=== PATIENT | female | born 1930 | race Caucasian/White ===

== ENCOUNTER 2017-11-01 21:47 | Inpatient (IN) | payer MEDICARE, BC ==
[~2017-11-01] VITALS: Ht 160 cm; Wt 64.8 kg
[2017-11-01 21:54] VITALS: BP 203/95; PULSE 104; RESP 18; TEMP 98.7; O2SAT 96
[2017-11-01 22:15] VITALS: BP 208/88; PULSE 89; RESP 18; O2SAT 98
--- NOTE | 2017-11-01 22:18 | PD ---
HPI Chief Complaint: Head Injury Time Seen by Provider: 22:11 Travel History International Travel<30 days: No Contact w/Intl Traveler<30days: No Traveled to known affect area: No History of Present Illness HPI The patient is an 87-year-old female that apparently tripped and fell and hit her left head at a 2100 tonight. She has been confused and has a left-sided headache and facial pain. She does not remember the incident. The fall was witnessed by her son and [id number]. She denies any injury other than to her face and head. She denies any neck pain. She takes aspirin but is not on any other anticoagulant. [facility] Social History Tobacco Use: No Allergies-Medications (Allergen,Severity, Reaction): Coded Allergies: Sulfa (Sulfonamide Antibiotics) (Verified Allergy, Severe, Anaphylaxis, 10/07) Reported Meds & Prescriptions Reported Meds & Active Scripts Active Reported Atorvastatin (Atorvastatin Calcium) 10 Mg Tab 10 Mg PO HS Zantac (Ranitidine HCl) 150 Mg Tab 150 Mg PO DAILY Aspirin 81 Mg Chew 81 Mg CHEW DAILY Ditropan (Oxybutynin Chloride) 5 Mg Tab 5 Mg PO Q12HR Triamterene-Hydrochlorothiazide 37.5-25 Mg Cap 1 Cap PO DAILY Carvedilol 12.5 Mg Tab 12.5 Mg PO BID Review of Systems Except as stated in HPI: all other systems reviewed are Neg Physical Exam Narrative GENERAL: The patient is alert but confused. She answers questions slowly but usually appropriately. Her vital signs show blood pressure 166/71 but otherwise normal. SKIN: Focused skin assessment warm/dry. HEAD: There are multiple tender areas of the scalp but no associated skull deformity. Neither raccoon eyes or nance sign is present. Normocephalic. EYES: Pupils equal and round. No scleral icterus. No injection or drainage. ENT: No nasal bleeding or discharge. Mucous membranes pink and moist. There is no hemotympanum present. NECK: Trachea midline. No JVD. No carotid bruits are heard. There is diffuse tenderness over the trapezius at the neck but no posterior spinous process deformity although there is some posterior spinous process tenderness. CARDIOVASCULAR: Regular rate and rhythm. No murmur appreciated. RESPIRATORY: No accessory muscle use. Clear to auscultation. Breath sounds equal bilaterally. GASTROINTESTINAL: Abdomen soft, non-tender, nondistended. Hepatic and splenic margins not palpable. MUSCULOSKELETAL: No obvious deformities. No clubbing. No cyanosis. No edema. NEUROLOGICAL: Awake and alert. No obvious cranial nerve deficits. Motor grossly within normal limits. Normal speech. PSYCHIATRIC: Appropriate mood and affect; insight and judgment normal. Data Data Last Documented VS Vital Signs Date Time Temp Pulse Resp B/P (MAP) Pulse Ox O2 Delivery O2 Flow Rate FiO2 11/01/17 23:30 85 18 192/87 (122) 98 Room Air 11/01/17 21:[address] Brain W/O Iv Contrast(Rout) (11/01/17 22:11) Ct Facial Bones W/O Iv Cont (11/01/17 22:11) Complete Blood Count With Diff (11/01/17 22:13) Comprehensive Metabolic Panel (11/01/17 22:13) Troponin I (11/01/17 22:13) Prothrombin Time / Inr (Pt) (11/01/17 22:13) Act Partial Throm Time (Ptt) (11/01/17 22:13) Urinalysis - C+S If Indicated (11/01/17 22:13) Urine Culture (11/01/17 22:17) Morphine Inj (Morphine Inj) (11/02/17 00:00) Admit Order (Ed Use Only) (11/02/17 00:20) Labs Laboratory Tests Test 11/01/17 22:17 White Blood Count 9.2 TH/MM3 Red Blood Count 5.17 MIL/MM3 Hemoglobin 14.6 GM/DL Hematocrit 44.9 % Mean Corpuscular Volume 86.9 FL Mean Corpuscular Hemoglobin 28.2 PG Mean Corpuscular Hemoglobin Concent 32.5 % Red Cell Distribution Width 13.6 % Platelet Count 275 TH/MM3 Mean Platelet Volume 8.1 FL Neutrophils (%) (Auto) 66.6 % Lymphocytes (%) (Auto) 21.7 % Monocytes (%) (Auto) 9.2 % Eosinophils (%) (Auto) 1.7 % Basophils (%) (Auto) 0.8 % Neutrophils # (Auto) 6.1 TH/MM3 Lymphocytes # (Auto) 2.0 TH/MM3 Monocytes # (Auto) 0.8 TH/MM3 Eosinophils # (Auto) 0.2 TH/MM3 Basophils # (Auto) 0.1 TH/MM3 CBC Comment DIFF FINAL Differential Comment Prothrombin Time 10.2 SEC Prothromb Time International Ratio 1.0 RATIO Activated Partial Thromboplast Time 24.5 SEC Urine Collection Type VOIDED Urine Color YELLOW Urine Turbidity HAZY Urine pH 5.5 Urine Specific [place] 1.023 Urine Protein TRACE mg/dL Urine Glucose (UA) NEG mg/dL Urine Ketones NEG mg/dL Urine Occult Blood SMALL Urine Nitrite POS Urine Bilirubin NEG Urine Leukocyte Esterase SMALL Urine WBC 100-200 /hpf Urine WBC Clumps RARE Urine Squamous Epithelial Cells 3-5 /hpf Urine Bacteria FEW /hpf Microscopic Urinalysis Comment CULTURE INDICATED Blood Urea Nitrogen 31 MG/DL Creatinine 0.95 MG/DL Random Glucose 109 MG/DL Total Protein 7.5 GM/DL Albumin 3.8 GM/DL Calcium Level 8.6 MG/DL Alkaline Phosphatase 145 U/L Aspartate Amino Transf (AST/SGOT) 24 U/L Alanine Aminotransferase (ALT/SGPT) 21 U/L Total Bilirubin 0.4 MG/DL Sodium Level 140 MEQ/L Potassium Level 3.6 MEQ/L Chloride Level 106 MEQ/L Carbon Dioxide Level 27.1 MEQ/L Anion Gap 7 MEQ/L Estimat Glomerular Filtration Rate 56 ML/MIN Troponin I LESS THAN 0.02 NG/ML MDM Medical Decision Making Medical Screen Exam Complete: Yes Emergency Medical Condition: Yes Medical Record Reviewed: Yes Interpretation(s) The CT of the brain shows left-sided facial bone fractures but no acute intracranial findings. The CT of the facial bones shows left orbital floor fracture and left orbital lateral wall fracture. There are anterior and posterior lateral maxillary sinus wall fractures with moderate sized air fluid level and hemorrhagic products of left maxillary sinus. There is a 1.6 cm osseous cyst in the left maxillary bone about the root of the left maxillary molar. This finding deforms the inferior wall left maxillary sinus. The CBC is normal. The coagulation profile is normal. The complete metabolic profile shows an alkaline phosphatase of 145, GFR 56 and BUN of 31 but otherwise is normal. The troponin I is normal. The urine shows hazy turbidity, small occult blood, positive nitrite, small leukocyte Estrace with 100-200 white cells and rare white cell clumping's and few bacteria and culture is indicated. Differential Diagnosis Facial fracture, intracranial bleed, skull fracture, urinary tract infection, electrolyte disorder, hypo/hyperglycemia Narrative Course The patient has multiple facial fractures. She has confusion. She also has a urinary tract infection. She will be given Rocephin for both her urinary tract infection and her maxillary sinus fracture. Physician Communication Physician Communication I discussed the patient with Malina Ji, Hodan Juares Diagnosis Primary Impression: Concussion Additional Impressions: Orbital floor fracture Fracture of maxillary sinus UTI (urinary tract infection) Adalid John MD Nov 01, 2017 22:18
[2017-11-01 22:29] LABS: BILIRUBIN, URINE NEG (NEG); BLOOD, URINE SMALL (NEG); GLUCOSE,URINE NEG (NEG); KETONE, URINE NEG (NEG); NITRITE,URINE POS (NEG); PH, URINE 5.5 (5.0-8.5); URINE LEUKOCYTE ESTERASE SMALL (NEG)
[2017-11-01 22:30] LABS: AUTOMATED NEUTROPHIL # 6.1 TH/MM3 (1.8-7.7); BASOPHIL # 0.1 TH/MM3 (0-0.2); BASOPHIL % 0.8 % (0.0-2.0); EOSINOPHIL # 0.2 TH/MM3 (0-0.4); EOSINOPHIL % 1.7 % (0.0-4.0); HEMATOCRIT 44.9 % (35.0-46.0); HEMOGLOBIN 14.6 GM/DL (11.6-15.3); LYMPH % 21.7 % (9.0-44.0); MEAN CELL VOLUME 86.9 FL (80.0-100.0); MEAN CORPUSCULAR HEMOGLOBIN 28.2 PG (27.0-34.0); MEAN CORPUSCULAR HGB CONC 32.5 % (32.0-36.0); MEAN PLATELET VOLUME 8.1 FL (7.0-11.0); MONO % 9.2 % (0.0-8.0); MONOCYTE # 0.8 TH/MM3 (0-0.9); NEUT % 66.6 % (16.0-70.0); PLATELET COUNT 275 TH/MM3 (150-450); RED BLOOD COUNT 5.17 MIL/MM3 (4.00-5.30); RED CELL DISTRIBUTION WIDTH 13.6 % (11.6-17.2); WHITE BLOOD COUNT 9.2 TH/MM3 (4.0-11.0)
[2017-11-01 22:36] LABS: URINE COLOR YELLOW (YELLW/STRAW); WBC, URINE 100-200 /hpf (0-5)
[2017-11-01 22:37] LABS: BACTERIA, URINE FEW /hpf; CHLORIDE 106 MEQ/L (98-107); SODIUM (NA) 140 MEQ/L (136-145); WHITE BLOOD CELL CLUMPS RARE
--- NOTE | 2017-11-01 22:39 | RADRPT ---
EXAM DATE/TIME: 11/01/2017 22:25 [facility] COMPARISON: No previous studies available for comparison. INDICATIONS : Status post fall today. Facial and head contusions. Confusion RADIATION DOSE: 55.66 CTDIvol (mGy) MEDICAL HISTORY : None SURGICAL HISTORY : jaw ENCOUNTER: Initial ACUITY: 1 day PAIN SCALE: 8/10 LOCATION: cranial TECHNIQUE: Multiple contiguous axial images were obtained of the head. Using automated exposure control and adj ustment of the mA and/or kV according to patient size, radiation dose was kept as low as reasonably a chievable to obtain optimal diagnostic quality images. DICOM format image data is available electro nically for review and comparison. FINDINGS: CEREBRUM: The ventricles are normal for age. No evidence of midline shift, mass lesion, hemorrhage or acute in farction. No extra-axial fluid collections are seen. POSTERIOR FOSSA: The cerebellum and brainstem are intact. The 4th ventricle is midline. The cerebellopontine angle i s unremarkable. EXTRACRANIAL: Left-sided facial bone fractures and hemorrhagic products in the left maxillary sinus. SKULL: The calvaria is intact. No evidence of skull fracture. CONCLUSION: Left-sided facial bone fractures. No acute intracranial findings. Jaycob Mckeon MD on November 01, 2017 at 22:35 Board Certified Radiologist. This report was verified electronically.
[2017-11-01 22:40] LABS: ALBUMIN 3.8 GM/DL (3.4-5.0); BICARBONATE 27.1 MEQ/L (21.0-32.0); CALCIUM 8.6 MG/DL (8.5-10.1)
[2017-11-01 22:41] LABS: BLOOD UREA NITROGEN 31 MG/DL (7-18); GLUCOSE,RANDOM 109 MG/DL (74-106)
[2017-11-01 22:43] LABS: ALT (GPT) 21 U/L (10-53); PROTHROMBIN TIME - PATIENT 10.2 SEC (9.8-11.6)
[2017-11-01 22:44] LABS: AST (GOT) 24 U/L (15-37); CREATININE 0.95 MG/DL (0.50-1.00); GLOMERULAR FILTRATION RATE 56 ML/MIN (>89)
[2017-11-01 22:45] LABS: TOTAL BILIRUBIN ADULT 0.4 MG/DL (0.2-1.0); TOTAL PROTEIN 7.5 GM/DL (6.4-8.2)
[2017-11-01 22:46] LABS: ALKALINE PHOSPHATASE 145 U/L (45-117)
[2017-11-01 22:48] LABS: TROPONIN I LESS THAN 0.02 NG/ML (0.02-0.05)
--- NOTE | 2017-11-01 22:49 | RADRPT ---
EXAM DATE/TIME: 11/01/2017 22:25 [facility] COMPARISON: No previous studies available for comparison. INDICATIONS : Status post fall. facial and head contusions. Confusion RADIATION DOSE: 34.89 CTDIvol (mGy) MEDICAL HISTORY : None SURGICAL HISTORY : Jaw ENCOUNTER: Initial ACUITY: 1 day PAIN SCORE: 8/10 LOCATION: facial TECHNIQUE: Volumetric scanning of the facial bones was performed. Using automated exposure control and adjustme nt of the mA and/or kV according to patient size, radiation dose was kept as low as reasonably achiev able to obtain optimal diagnostic quality images. DICOM format image data is available electronicall y for review and comparison. FINDINGS: ORBITS: Fracture of the left orbital floor, mildly comminuted. Fracture is displaced superiorly 3 mm. Fractur e extends to the orbital rim. Fracture is just lateral to the infraorbital foramen. The nondisplaced left lateral orbital wall fracture. Right orbit is intact. Globes are round and symmetric. Extraocula r muscles are within normal limits. NASAL BONE: The nasal bone and maxillary spine are intact ZYGOMATIC ARCHES: Nondisplaced fractures of the central and posterior left zygomatic arch. SINUSES: Mildly comminuted fracture of the anterior wall of the left maxillary sinus. Nondisplaced fracture of the postero-lateral wall of the left maxillary sinus. Moderate sized air-fluid level in the left max illary sinus. Sinuses are otherwise clear. Expansile periapical cyst adjacent to left maxillary molar root measuring 1.6 cm in diameter and extending into the floor of the left maxillary sinus. This fin ding is chronic. NASAL CAVITY: The nasal septum is intact and midline. The lacrimal ducts are intact. CONCLUSION: 1. Left orbital floor flexure and left lateral orbital wall fracture. 2. Anterior and posterior lateral left maxillary sinus wall fractures. Moderate-sized air-fluid level /hemorrhagic products in the left maxillary sinus. 3. 1.6 cm osseous cyst in the left maxillary bone about the root of a left-sided maxillary molar. Thi s finding deforms the inferior wall of the left maxillary sinus. Jaycob Mckeon MD on November 01, 2017 at 22:41 Board Certified Radiologist. This report was verified electronically.
[2017-11-01 23:30] VITALS: BP 192/87; PULSE 85; RESP 18; O2SAT 98
[2017-11-01] MEDS ORDERED: CARV12.52 PO (23:44)
[2017-11-01] MEDS ORDERED: ATOR10TA15 PO (23:44)
[2017-11-01] MEDS ORDERED: ZANT150T2 PO (23:44)
[2017-11-01] MEDS ORDERED: OXYB5TAB8 PO (23:44)
[2017-11-01] MEDS ORDERED: ASPI-516 CHEW (23:44)
[2017-11-01] MEDS ORDERED: TRIA37.53 PO (23:44)
[2017-11-02] VITALS (18 sets, daily range): BP systolic 98–198; BP diastolic 43–97; PULSE 70–93; RESP 12–21; TEMP 97.5–98.5; O2SAT 93–99
[2017-11-02] MEDS ORDERED: MORPHINE SULFATE 4 MG/ML INJ IV PUSH ONE
[2017-11-02] MEDS ORDERED: ACETAMINOPHEN/HYDROcodone 325 MG/5 MG TAB PO PRN (00:30)
[2017-11-02] MEDS ORDERED: LACTULOSE SYRUP 20 GM/30 ML CUP PO PRN (00:30)
[2017-11-02] MEDS ORDERED: ONDANSETRON HCL 4 MG/2 ML VIAL IVP PRN (00:30)
[2017-11-02] MEDS ORDERED: MAGNESIUM HYDROXIDE SUSP 30 ML CUP PO PRN (00:30)
[2017-11-02] MEDS ORDERED: SODIUM CHLORIDE 0.9% FLUSH 10 ML FLUSH IV FLUSH PRN ×2 (00:30→03:45)
[2017-11-02] MEDS ORDERED: SENNOSIDES 8.6 MG TAB PO PRN (00:30)
[2017-11-02] MEDS ORDERED: MORPHINE SULFATE 2 MG/ML INJ IV PUSH PRN (00:30)
[2017-11-02] MEDS ORDERED: BISACODYL 10 MG SUPP RECTAL PRN (00:30)
[2017-11-02] MEDS: cefTRIAXone INJ 1,000 MG in SODIUM CHLORIDE 0.9% INJ 100 ML IV SCH (01:09)
[2017-11-02] MEDS: SODIUM CHLOR 0.9% 1000 ML INJ 1,000 ML IV SCH ×2 (01:12→02:25)
[2017-11-02] MEDS ORDERED: hydrALAZINE HCL 20 MG/ML VIAL IV PUSH PRN (03:45)
[2017-11-02] MEDS ORDERED: hydrALAZINE HCL 20 MG/ML VIAL IV ONE (05:15)
[2017-11-02 07:07] LABS: AUTOMATED NEUTROPHIL # 7.8 TH/MM3 (1.8-7.7); BASOPHIL % 0.2 % (0.0-2.0); EOSINOPHIL # 0.1 TH/MM3 (0-0.4); EOSINOPHIL % 0.6 % (0.0-4.0); HEMATOCRIT 40.8 % (35.0-46.0); LYMPH % 14.9 % (9.0-44.0); LYMPHOCYTE # 1.5 TH/MM3 (1.0-4.8); MEAN CORPUSCULAR HGB CONC 31.8 % (32.0-36.0); MEAN PLATELET VOLUME 8.4 FL (7.0-11.0); MONO % 8.8 % (0.0-8.0); MONOCYTE # 0.9 TH/MM3 (0-0.9); NEUT % 75.5 % (16.0-70.0); PLATELET COUNT 234 TH/MM3 (150-450); RED BLOOD COUNT 4.64 MIL/MM3 (4.00-5.30); RED CELL DISTRIBUTION WIDTH 13.9 % (11.6-17.2); WHITE BLOOD COUNT 10.3 TH/MM3 (4.0-11.0)
[2017-11-02 07:10] LABS: CHLORIDE 106 MEQ/L (98-107); SODIUM (NA) 142 MEQ/L (136-145)
[2017-11-02 07:14] LABS: ALBUMIN 3.3 GM/DL (3.4-5.0); BICARBONATE 28.5 MEQ/L (21.0-32.0); CALCIUM 8.3 MG/DL (8.5-10.1); GLUCOSE,RANDOM 119 MG/DL (74-106)
[2017-11-02 07:15] LABS: BLOOD UREA NITROGEN 22 MG/DL (7-18)
[2017-11-02 07:18] LABS: ALT (GPT) 16 U/L (10-53); AST (GOT) 23 U/L (15-37); CREATININE 0.77 MG/DL (0.50-1.00); GLOMERULAR FILTRATION RATE 71 ML/MIN (>89)
[2017-11-02 07:19] LABS: TOTAL BILIRUBIN ADULT 0.6 MG/DL (0.2-1.0); TOTAL PROTEIN 6.5 GM/DL (6.4-8.2)
[2017-11-02 07:21] LABS: ALKALINE PHOSPHATASE 116 U/L (45-117)
[2017-11-02] MEDS: TRIAMTERENE/HCTZ 37.5 MG/25 MG CAP PO SCH (08:17)
[2017-11-02] MEDS: FAMOTIDINE 20 MG TAB PO SCH (08:17)
[2017-11-02] MEDS: CARVEDILOL 12.5 MG TAB PO SCH ×2 (08:17→20:48)
[2017-11-02] MEDS: DOCUSATE SODIUM 50 MG/SENNA 8.6 MG TAB PO SCH ×2 (08:18→20:48)
[2017-11-02] MEDS: SODIUM CHLORIDE 0.9% FLUSH 10 ML FLUSH IV FLUSH SCH ×4 (08:18→20:50)
[2017-11-02] MEDS: ACETAMINOPHEN 325 MG TAB PO PRN ×2 (08:18→17:42)
[2017-11-02] MEDS: OXYBUTYNIN CHLORIDE 5 MG TAB PO SCH ×2 (08:54→20:47)
--- NOTE | 2017-11-02 09:56 | HHI.HP ---
[facility] Primary [facility] Physician Unknown Admission Diagnosis Concussion, Facial fractures, UTI Diagnoses: (1) Fracture of maxillary sinus Diagnosis: Principal (2) Orbital floor fracture Diagnosis: Principal (3) UTI (urinary tract infection) Diagnosis: Principal Chief Complaint: Status post fall Travel History International Travel<30 Days: No Contact w/Intl Traveler <30 Da: No Traveled to Known Affected Are: No History of Present Illness Written by mAy Esposito, acting as scribe for [[facility]] on 11/02/17 at 0956. This is an 87-year-old female patient with a known medical history of hyperlipidemia, hypertension and overactive bladder who presented to the ED status post fall. Per , patient had apparently tripped and fell in the parking lot last evening around 2100 hitting the left side of his her face, therefore was brought in to the ED. A CT head was performed showing no acute intracranial abnormality. Patient does not recall the fall or incidents after the fall up until this morning. Patient and her family did go to a wedding the day of the fall and patient's memory of the last day is foggy. Denies any recent illness including fever, chills, shortness of breath, cough, chest pain, nausea, vomiting or diarrhea. Denies any headaches or blurry vision. Patient does state that she had a urinary tract infection one year ago with similar symptoms of confusion and lethargy. At that time she was treated with antibiotics and symptoms improved. Patient is completely independent at baseline, lives at home alone with and able to perform all ADLs independently. Review of Systems Constitutional: DENIES: Fever, Chills Eyes: COMPLAINS OF: Eye pain (left), DENIES: Blurred vision, Diplopia, Eye inflammation, Vision loss, Photosensitivity, Double Vision Respiratory: DENIES: Cough, Shortness of breath Cardiovascular: DENIES: Chest pain, Palpitations Gastrointestinal: DENIES: Abdominal pain, Black stools, Bloody stools, Constipation, Diarrhea, Nausea, Vomiting Musculoskeletal: DENIES: Joint pain Neurologic: COMPLAINS OF: Poor Balance Psychiatric: COMPLAINS OF: Confusion, DENIES: Anxiety, Mood changes, Agitation Except as stated in HPI: all other systems reviewed are Neg Past Family Social History 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, broken jaw repair Reported Medications Active Reported Atorvastatin (Atorvastatin Calcium) 10 Mg Tab 10 Mg PO HS Zantac (Ranitidine HCl) 150 Mg Tab 150 Mg PO DAILY Aspirin 81 Mg Chew 81 Mg CHEW DAILY Ditropan (Oxybutynin Chloride) 5 Mg Tab 5 Mg PO Q12HR Triamterene-Hydrochlorothiazide 37.5-25 Mg Cap 1 Cap PO DAILY Carvedilol 12.5 Mg Tab 12.5 Mg PO BID Allergies: Coded Allergies: Sulfa (Sulfonamide Antibiotics) (Verified Allergy, Severe, Anaphylaxis, 10/07) Active Ordered Medications Current Medications Medications (Trade) Dose Ordered Sig/Haja Route Start Time Stop Time Status Last Admin Sodium Chloride 1,000 ml @ 100 mls/hr Q10H IV 11/02/17 00:25 11/02/17 02:25 (NS Flush) 2 ml UNSCH PRN IV FLUSH 11/02/17 00:30 (NS Flush) 2 ml BID IV FLUSH 11/02/17 09:00 11/02/17 08:18 (Zofran Inj) 4 mg Q6H PRN IVP 11/02/17 00:30 (Tylenol) 650 mg Q6H PRN PO 11/02/17 00:30 11/02/17 08:18 (Vandiver 5-325 Mg) 1 tab Q4H PRN PO 11/02/17 00:30 (Morphine Inj) 2 mg Q3H PRN IV PUSH 11/02/17 00:30 (Dee Dee-Colace) 1 tab BID PO 11/02/17 09:00 11/02/17 08:18 (Milk Of Magnesia Liq) 30 ml Q12H PRN PO 11/02/17 00:30 (Senokot) 17.2 mg Q12H PRN PO 11/02/17 00:30 (Dulcolax Supp) 10 mg DAILY PRN RECTAL 11/02/17 00:30 (Lactulose Liq) 30 ml DAILY PRN PO 11/02/17 00:30 Ceftriaxone Sodium 1000 mg/ Sodium Chloride 100 ml @ 200 mls/hr Q24H IV 11/02/17 01:00 11/02/17 01:09 (Lipitor) 10 mg HS PO 11/02/17 21:00 (Coreg) 12.5 mg BID PO 11/02/17 09:00 11/02/17 08:17 (Ditropan) 5 mg Q12HR PO 11/02/17 09:00 11/02/17 08:54 (Dyazide 37.5-25 Mg) 1 cap DAILY PO 11/02/17 09:00 11/02/17 08:17 (Pepcid) 20 mg DAILY PO 11/02/17 09:00 11/02/17 08:17 (NS Flush) 2 ml UNSCH PRN IV FLUSH 11/02/17 03:45 (NS Flush) 2 ml BID IV FLUSH 11/02/17 09:00 (Apresoline Inj) 10 mg Q6H PRN IV PUSH 11/02/17 03:45 Family History Paternal medical history significant for CAD with [place] history Maternal medical history significant for dementia Social History She denies any tobacco abuse. Denies any alcohol use. Denies any illicit drug use. Physical Exam Vital Signs Vital Signs Date Time Temp Pulse Resp B/P (MAP) Pulse Ox O2 Delivery O2 Flow Rate FiO2 11/02/17 08:00 98.2 88 20 119/66 (83) 96 11/02/17 06:25 92 20 156/62 (93) 94 11/02/17 04:30 80 20 195/75 (115) 96 11/02/17 04:18 82 18 166/71 (102) 95 11/02/17 03:30 82 18 198/97 (130) 95 11/02/17 02:27 97.5 84 20 193/80 (117) 98 11/02/17 02:10 98.2 75 16 177/84 (115) 98 11/02/17 01:05 85 18 175/80 (111) 99 Room Air 11/01/17 23:30 85 18 192/87 (122) 98 Room Air 11/01/17 22:15 Room Air 11/01/17 22:15 89 18 208/88 (128) 98 Room Air 11/01/17 21:54 98.7 104 18 203/95 (131) 96 Physical Exam GENERAL: This is a well-nourished, well-developed elderly patient, in no apparent distress. Alert, awake and oriented. SKIN: No rashes, ecchymoses or lesions. Warm and dry. HEAD: Normocephalic. Left eye ecchymosis and mild swelling, status post fall. No hemorrhage noted. Denies any blurry vision. EYES: Pupils equal round and reactive. Extraocular motions intact. No scleral icterus. No drainage. ENT: Nose without bleeding, purulent drainage or septal hematoma. Throat without erythema. Uvula midline. Airway patent. NECK: Trachea midline. No JVD. Supple. CARDIOVASCULAR: Regular rate and rhythm without murmurs, gallops, or rubs. RESPIRATORY: Clear to auscultation. Breath sounds equal bilaterally. No wheezes , rales, or rhonchi. GASTROINTESTINAL: Abdomen soft, non-tender, nondistended. No guarding. MUSCULOSKELETAL: Extremities without clubbing, cyanosis, or edema. No joint tenderness, effusion, or edema noted. NEUROLOGICAL: Awake and alert. Cranial nerves II through XII intact. Motor and sensory grossly within normal limits. Five out of 5 muscle strength in all muscle groups. Normal speech. Laboratory Laboratory Tests Test 11/01/17 22:17 11/02/17 06:00 White Blood Count 9.2 10.3 Red Blood Count 5.17 4.64 Hemoglobin 14.6 13.0 Hematocrit 44.9 40.8 Mean Corpuscular Volume 86.9 88.0 Mean Corpuscular Hemoglobin 28.2 28.0 Mean Corpuscular Hemoglobin Concent 32.5 31.8 Red Cell Distribution Width 13.6 13.9 Platelet Count 275 234 Mean Platelet Volume 8.1 8.4 Neutrophils (%) (Auto) 66.6 75.5 Lymphocytes (%) (Auto) 21.7 14.9 Monocytes (%) (Auto) 9.2 8.8 Eosinophils (%) (Auto) 1.7 0.6 Basophils (%) (Auto) 0.8 0.2 Neutrophils # (Auto) 6.1 7.8 Lymphocytes # (Auto) 2.0 1.5 Monocytes # (Auto) 0.8 0.9 Eosinophils # (Auto) 0.2 0.1 Basophils # (Auto) 0.1 0.0 CBC Comment DIFF FINAL DIFF FINAL Differential Comment Prothrombin Time 10.2 Prothromb Time International Ratio 1.0 Activated Partial Thromboplast Time 24.5 Urine Collection Type VOIDED Urine Color YELLOW Urine Turbidity HAZY Urine pH 5.5 Urine Specific [place] 1.023 Urine Protein TRACE Urine Glucose (UA) NEG Urine Ketones NEG Urine Occult Blood SMALL Urine Nitrite POS Urine Bilirubin NEG Urine Leukocyte Esterase SMALL Urine WBC 100-200 Urine WBC Clumps RARE Urine Squamous Epithelial Cells 3-5 Urine Bacteria FEW Microscopic Urinalysis Comment CULTURE INDICATED Blood Urea Nitrogen 31 22 Creatinine 0.95 0.77 Random Glucose 109 119 Total Protein 7.5 6.5 Albumin 3.8 3.3 Calcium Level 8.6 8.3 Alkaline Phosphatase 145 116 Aspartate Amino Transf (AST/SGOT) 24 23 Alanine Aminotransferase (ALT/SGPT) 21 16 Total Bilirubin 0.4 0.6 Sodium Level 140 142 Potassium Level 3.6 3.7 Chloride Level 106 106 Carbon Dioxide Level 27.1 28.5 Anion Gap 7 8 Estimat Glomerular Filtration Rate 56 71 Troponin I LESS THAN 0.02 Date/Time Source Procedure Growth Status 11/01/17 22:17 Urine Random Urine Urine Culture Pending Received Result Diagram: 11/02/17 0600 11/02/17 0600 Imaging Last Impressions Wrist X-Ray 11/02/17 0000 Signed Impressions: Service Date/Time: Thursday, November 02, 2017 10:01 - CONCLUSION: No evidence of fracture. 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 Jaycob Mckeon MD Maxillofacial CT 11/01/172210 Signed Impressions: Service Date/Time: Wednesday, November 01, 2017 22:25 - CONCLUSION: 1. Left orbital floor flexure and left lateral orbital wall fracture. 2. Anterior and posterior lateral left maxillary sinus wall fractures. Moderate-sized air- fluid level/hemorrhagic products in the left maxillary sinus. 3. 1.6 cm osseous cyst in the left maxillary bone about the root of a left-sided maxillary molar. This finding deforms the inferior wall of the left maxillary sinus. Jaycob Mckeon MD Head CT 11/01/172210 Signed Impressions: Service Date/Time: Wednesday, November 01, 2017 22:25 - CONCLUSION: Left-sided facial bone fractures. No acute intracranial findings. Jaycob Mckeon MD Septic Shock Reassessment Septic shock perfusion: reassessment completed Caprini VTE Risk Assessment Caprini VTE Risk Assessment: Mod/High Risk (score >= 2) Caprini Risk Assessment Model Point Value = 1 Point Value = 2 Point Value = 3 Point Value = 5 Age 41-60 Minor surgery BMI > 25 kg/m2 Swollen legs Varicose veins or History of unexplained or recurrent spontaneous Oral contraceptives or hormone replacement Sepsis (< 1 month) Serious lung disease, including pneumonia (< 1 month) Abnormal pulmonary function Acute myocardial infarction Congestive heart failure (< 1 month) History of inflammatory bowel disease Medical patient at bed rest Age 61-74 Arthroscopic surgery Major open surgery (> 45 min) Laparoscopic surgery (> 45 min) Malignancy Confined to bed (> 72 hours) Immobilizing plaster cast Central venous access Age >= 75 History of VTE Family history of VTE Factor V Leiden Prothrombin [id number] Lupus anticoagulant Anticardiolipin antibodies Elevated serum homocysteine Heparin-induced thrombocytopenia Other congenital or acquired thrombophilia Stroke (< 1 month) Elective arthroplasty Hip, pelvis, or leg fracture Acute spinal cord injury (< 1 month) Prophylaxis Regimen Total Risk Factor Score Risk Level Prophylaxis Regimen 0-1 Low Early ambulation 2 Moderate Order ONE of the following: *Sequential Compression Device (SCD) *Heparin 5000 units SQ BID 3-4 Higher Order ONE of the following medications: *Heparin 5000 units SQ TID *Enoxaparin/Lovenox 40 mg SQ daily (WT < 150 kg, CrCl > 30 mL/min) *Enoxaparin/Lovenox 30 mg SQ daily (WT < 150 kg, CrCl > 10-29 mL/min) *Enoxaparin/Lovenox 30 mg SQ BID (WT < 150 kg, CrCl > 30 mL/min) AND/OR *Sequential Compression Device (SCD) 5 or more Highest Order ONE of the following medications: *Heparin 5000 units SQ TID (Preferred with Epidurals) *Enoxaparin/Lovenox 40 mg SQ daily (WT < 150 kg, CrCl > 30 mL/min) *Enoxaparin/Lovenox 30 mg SQ daily (WT < 150 kg, CrCl > 10-29 mL/min) *Enoxaparin/Lovenox 30 mg SQ BID (WT < 150 kg, CrCl > 30 mL/min) AND *Sequential Compression Device (SCD) Assessment and Plan Problem List: (1) Facial fracture due to fall ICD Code: S02.92XA - Unspecified fracture of facial bones, initial encounter for closed fracture; W19.XXXA - Unspecified fall, initial encounter Plan: Patient status post fall with facial fractures. Confusion has resolved. Denies any pain. Maxillofacial CT reviewed showing left orbital floor flexure and left lateral orbital wall fracture. Anterior and posterior lateral left maxillary sinus wall fractures. Moderate-sized air-fluid level/hemorrhagic products in the left maxillary sinus. 3. 1.6 cm osseous cyst in the left maxillary bone about the root of a left-sided maxillary molar. This finding deforms the inferior wall of the left maxillary sinus. Control pain, morphine IV and Vandiver PO available as needed per pain scale. Consult placed to oral/facial on-call surgeon with recommendations to monitor patient here at our facility. (2) Swelling of joint of left wrist ICD Code: M25.432 - Effusion, left wrist Plan: Status post fall. Left wrist x-ray performed showing no acute fracture. Supportive care. Ice as needed, elevation. (3) Abnormal urinalysis ICD Code: R82.90 - Unspecified abnormal findings in urine Plan: Patient started on ceftriaxone in the ED. Continue. Follow culture. (4) Hypertension ICD Code: I10 - Essential (primary) hypertension Plan: Continue home medications. Monitor BP trends. Stable at this time. DVT Prophylaxis: SCDs. Medical Decision Making Impression and Plan This note was transcribed by tana [[email or web address]]. I, Dr. Meenu Stiles personally performed the history, physical exam, and medical decision making; and confirmed the accuracy of the information in the transcribed note. Case discussed with WAVE SOLDERING MACHINE OPERATOR and family at bedside. They are agreeable to the plan Authenticated by Dr. Meenu Stiles on 11/02/17 at 13:31. Amy Esposito Nov 02, 2017 09:56 Meenu Stiles MD Nov 02, 2017 13:32
--- NOTE | 2017-11-02 10:21 | RADRPT ---
EXAM DATE/TIME: 11/02/2017 10:01 [place] COMPARISON: No previous studies available for comparison. INDICATIONS : Fell, has swelling and pain left wrist MEDICAL HISTORY : None. SURGICAL HISTORY : None. ENCOUNTER: Subsequent ACUITY: 2 days PAIN SCORE: 5/10 LOCATION: Left wrist FINDINGS: 3 views left wrist. Moderate-sized osteophytes and moderate narrowing of the thumb carpometacarpal pramod int. Alignment within normal limits. No evidence of acute fracture. Diffuse bone demineralization. CONCLUSION: No evidence of fracture. 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 Jaycob Mckeon MD on November 02, 2017 at 10:17 Board Certified Radiologist. This report was verified electronically.
[2017-11-02] MEDS: ATORVASTATIN 10 MG TAB PO SCH (20:48)
[2017-11-03] VITALS (8 sets, daily range): BP systolic 118–170; BP diastolic 45–81; PULSE 51–78; RESP 14–32; TEMP 96.7–98.5; O2SAT 94–98
[2017-11-03] MEDS: cefTRIAXone INJ 1,000 MG in SODIUM CHLORIDE 0.9% INJ 100 ML IV SCH (00:55)
--- NOTE | 2017-11-03 07:43 | HHI.PR ---
Subjective Remarks Patient seen and evaluated today in follow-up for fall with urinary tract infection for facial fracture. Doing well. Patient with external catheter. Some confusion overnight but easily reoriented. Discussed with DAIRY MANAGEMENT SPECIALIST Objective Vitals Vital Signs Date Time Temp Pulse Resp B/P (MAP) Pulse Ox O2 Delivery O2 Flow Rate FiO2 11/03/17 04:00 98.0 58 14 142/67 (92) 95 11/03/17 00:03 98.0 78 15 118/45 (69) 94 11/02/17 23:33 76 14 130/51 (77) 93 11/02/17 23:03 72 21 108/45 (66) 94 11/02/17 22:33 76 15 116/48 (70) 96 11/02/17 22:03 72 15 129/64 (85) 94 11/02/17 21:33 70 12 130/51 (77) 96 11/02/17 21:03 70 15 116/52 (73) 95 11/02/17 20:43 72 20 122/59 (80) 97 11/02/17 20:00 98.0 93 21 98/43 (61) 97 11/02/17 16:00 98.1 80 19 118/59 (78) 96 11/02/17 12:00 98.5 73 18 123/51 (75) 96 11/02/17 08:00 98.2 88 20 119/66 (83) 96 I/O 11/02/17 11/02/17 11/02/17 11/03/17 11/03/17 11/03/17 07:00 15:00 23:00 07:00 15:00 23:00 Intake Total 100 ml 1000 ml 100 ml Output Total 800 ml 700 ml 400 ml 600 ml Balance -700 ml 300 ml -400 ml -500 ml Intake IV Total 100 ml 1000 ml 100 ml Output Urine Total 800 ml 700 ml 400 ml 600 ml Result Diagram: 11/02/17 0600 11/02/17 0600 Imaging Last Impressions Wrist X-Ray 11/02/17 0000 Signed Impressions: Service Date/Time: Thursday, November 02, 2017 10:01 - CONCLUSION: No evidence of fracture. 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 Jaycob Mckeon MD Maxillofacial CT 11/01/171 Signed Impressions: Service Date/Time: Wednesday, November 01, 2017 22:25 - CONCLUSION: 1. Left orbital floor flexure and left lateral orbital wall fracture. 2. Anterior and posterior lateral left maxillary sinus wall fractures. Moderate-sized air- fluid level/hemorrhagic products in the left maxillary sinus. 3. 1.6 cm osseous cyst in the left maxillary bone about the root of a left-sided maxillary molar. This finding deforms the inferior wall of the left maxillary sinus. Jaycob Mckeon MD Head CT 11/01/172210 Signed Impressions: Service Date/Time: Wednesday, November 01, 2017 22:25 - CONCLUSION: Left-sided facial bone fractures. No acute intracranial findings. Jaycob Mckeon MD Objective Remarks GENERAL: This is a well-nourished, well-developed patient, left facial ecchymosis with some swelling CARDIOVASCULAR: Regular rate and rhythm without murmurs, gallops, or rubs. RESPIRATORY: Clear to auscultation. Breath sounds equal bilaterally. No wheezes , rales, or rhonchi. GASTROINTESTINAL: Abdomen soft, non-tender, nondistended. Normal active bowel sounds MUSCULOSKELETAL: Extremities without clubbing, cyanosis, or edema. NEURO: Alert & Oriented x4 to person, place, time, situation. Moves all ext x4 A/P Problem List: (1) Facial fracture due to fall ICD Code: S02.92XA - Unspecified fracture of facial bones, initial encounter for closed fracture; W19.XXXA - Unspecified fall, initial encounter Plan: Continue supportive care with pain control Oromaxillofacial surgery consult pending (2) Swelling of joint of left wrist ICD Code: M25.432 - Effusion, left wrist Plan: No evidence of fracture, continue supportive care (3) Abnormal urinalysis ICD Code: R82.90 - Unspecified abnormal findings in urine Plan: Continue empiric IV Rocephin and follow cultures (4) Hypertension ICD Code: I10 - Essential (primary) hypertension Plan: Controlled on home medications Meenu Stiles MD Nov 03, 2017 07:43
[2017-11-03] MEDS: FAMOTIDINE 20 MG TAB PO SCH (09:00)
[2017-11-03] MEDS: OXYBUTYNIN CHLORIDE 5 MG TAB PO SCH ×2 (09:00→22:09)
[2017-11-03] MEDS: SODIUM CHLORIDE 0.9% FLUSH 10 ML FLUSH IV FLUSH SCH ×4 (09:00→22:09)
[2017-11-03] MEDS: CARVEDILOL 12.5 MG TAB PO SCH ×2 (09:00→22:09)
[2017-11-03] MEDS: TRIAMTERENE/HCTZ 37.5 MG/25 MG CAP PO SCH (09:00)
[2017-11-03] MEDS: DOCUSATE SODIUM 50 MG/SENNA 8.6 MG TAB PO SCH ×2 (09:01→22:09)
[2017-11-03] MEDS: ACETAMINOPHEN 325 MG TAB PO PRN (09:18)
[2017-11-03] MEDS: ATORVASTATIN 10 MG TAB PO SCH (22:09)
[2017-11-04] VITALS: BP 142/67; PULSE 75; RESP 16; TEMP 97.2; O2SAT 96
[2017-11-04] MEDS: cefTRIAXone INJ 1,000 MG in SODIUM CHLORIDE 0.9% INJ 100 ML IV SCH (00:37)
[2017-11-04 07:50] VITALS: BP 143/65; PULSE 61; RESP 20; TEMP 98.5; O2SAT 95
[2017-11-04] MEDS: CARVEDILOL 12.5 MG TAB PO SCH ×2 (08:46→22:30)
[2017-11-04] MEDS: OXYBUTYNIN CHLORIDE 5 MG TAB PO SCH ×2 (08:46→22:30)
[2017-11-04] MEDS: FAMOTIDINE 20 MG TAB PO SCH (08:46)
[2017-11-04] MEDS: DOCUSATE SODIUM 50 MG/SENNA 8.6 MG TAB PO SCH ×3 (08:46→22:29)
[2017-11-04] MEDS: SODIUM CHLORIDE 0.9% FLUSH 10 ML FLUSH IV FLUSH SCH ×3 (08:46→22:30)
[2017-11-04] MEDS: TRIAMTERENE/HCTZ 37.5 MG/25 MG CAP PO SCH (08:46)
--- NOTE | 2017-11-04 09:41 | HHI.PR ---
Objective Vitals Vital Signs Date Time Temp Pulse Resp B/P (MAP) Pulse Ox O2 Delivery O2 Flow Rate FiO2 11/04/17 00:00 97.2 75 16 142/67 (92) 96 11/03/17 20:00 96.7 51 20 155/81 (105) 98 11/03/17 18:00 97.3 76 18 140/63 (88) 97 11/03/17 16:00 98.5 52 20 158/70 (99) 97 11/03/17 12:00 97.6 60 16 127/53 (77) 96 I/O 11/03/17 11/03/17 11/03/17 11/04/17 11/04/17 11/04/17 07:00 15:00 23:00 07:00 15:00 23:00 Intake Total 100 ml 660 ml 300 ml 340 ml Output Total 600 ml 700 ml 350 ml Balance -500 ml -40 ml -50 ml 340 ml Intake Oral 660 ml 300 ml 240 ml IV Total 100 ml 100 ml Output Urine Total 600 ml 700 ml 350 ml # Voids 3 # Bowel Movements 0 Result Diagram: 11/02/17 0600 11/02/17 0600 A/P Problem List: (1) Facial fracture due to fall ICD Code: S02.92XA - Unspecified fracture of facial bones, initial encounter for closed fracture; W19.XXXA - Unspecified fall, initial encounter (2) Swelling of joint of left wrist ICD Code: M25.432 - Effusion, left wrist (3) Abnormal urinalysis ICD Code: R82.90 - Unspecified abnormal findings in urine (4) Hypertension ICD Code: I10 - Essential (primary) hypertension Amy Esposito Nov 04, 2017 09:40
--- NOTE | 2017-11-04 11:28 | PD.CONS ---
History of Present Illness Service Infectious disease Consult Requested By Dr Meenu Stiles Reason for Consult ESBL UTI Primary Care Physician Unknown Diagnoses: (1) Infection due to ESBL-producing Escherichia coli (2) UTI (urinary tract infection) (3) Orbital floor fracture (4) Fracture of maxillary sinus Past Family Social History Allergies: Coded Allergies: Sulfa (Sulfonamide Antibiotics) (Verified Allergy, Severe, Anaphylaxis, 10/07) Physical Exam Vital Signs Vital Signs Date Time Temp Pulse Resp B/P (MAP) Pulse Ox O2 Delivery O2 Flow Rate FiO2 11/04/17 07:50 98.5 61 20 143/65 (91) 95 11/04/17 00:00 97.2 75 16 142/67 (92) 96 11/03/17 20:00 96.7 51 20 155/81 (105) 98 11/03/17 18:00 97.3 76 18 140/63 (88) 97 11/03/17 16:00 98.5 52 20 158/70 (99) 97 11/03/17 12:00 97.6 60 16 127/53 (77) 96 Physical Exam GENERAL: This is a well-nourished, well-developed patient, in no apparent distress. SKIN: No rashes, ecchymoses or lesions. Cool and dry. HEAD: Atraumatic. Normocephalic. No temporal or scalp tenderness. EYES: Pupils equal round and reactive. Extraocular motions intact. No scleral icterus. No injection or drainage. ENT: Nose without bleeding, purulent drainage or septal hematoma. Throat without erythema, tonsillar hypertrophy or exudate. Uvula midline. Airway patent. NECK: Trachea midline. No JVD or lymphadenopathy. Supple, nontender, no meningeal signs. CARDIOVASCULAR: Regular rate and rhythm without murmurs, gallops, or rubs. RESPIRATORY: Clear to auscultation. Breath sounds equal bilaterally. No wheezes , rales, or rhonchi. GASTROINTESTINAL: Abdomen soft, non-tender, nondistended. No hepato-splenomegaly , or palpable masses. No guarding. MUSCULOSKELETAL: Extremities without clubbing, cyanosis, or edema. No joint tenderness, effusion, or edema noted. No calf tenderness. Negative Homans sign bilaterally. NEUROLOGICAL: Awake and alert. Cranial nerves II through XII intact. Motor and sensory grossly within normal limits. Five out of 5 muscle strength in all muscle groups. Normal speech. Laboratory Date/Time Source Procedure Growth Status 11/01/17 22:17 Urine Random Urine Urine Culture - Final Escherichia Coli Esbl Positive Complete Result Diagram: 11/02/17 0600 11/02/17 0600 Assessment and Plan Problem List: (1) UTI (urinary tract infection) ICD Codes: N39.0 - Urinary tract infection, site not specified Status: Acute Plan: Patient is symptomatic and did have some confusion prior to admission Will start pt on Invanz 1 g IV daily Repeat UA and culture on 11/05 (2) Infection due to ESBL-producing Escherichia coli ICD Codes: A49.8 - Other bacterial infections of unspecified site; Z16.12 - Extended spectrum beta lactamase (ESBL) resistance (3) Orbital floor fracture ICD Codes: S02.30XA - Fracture of orbital floor, unspecified side, initial encounter for closed fracture Status: Acute (4) Fracture of maxillary sinus ICD Codes: S02.401A - Maxillary fracture, unspecified side, initial encounter for closed fracture Status: Acute Marly Church MD Nov 04, 2017 11:28
[2017-11-04] MEDS ORDERED: ERTAPENEM SODIUM 1000 MG VIAL IV SCH (11:30)
[2017-11-04 11:50] VITALS: BP 167/73; PULSE 69; RESP 20; TEMP 97.8; O2SAT 95
[2017-11-04] MEDS: ERTAPENEM 1,000 MG/NS 100 ML IV SCH ×2 (13:46)
--- NOTE | 2017-11-04 15:02 | PD.CONS ---
History of Present Illness Service Plastic surgery Consult Requested By Primary team Reason for Consult Facial fracture Primary Care Physician Unknown Diagnoses: History of Present Illness Patient is an 87-year-old female who presents status post fall from standing 3 days ago with resultant left facial trauma. Patient is amnestic to event. In hindsight the patient appears to have been affected by a urinary tract infection and was lightheaded and or disoriented immediately preceding the fall. The patient was told that she tripped over something on the ground and fell onto concrete. The patient was taken to the emergency room and admitted for the facial trauma as well as urosepsis. The patient denies any vision changes, diplopia, or difficulty in looking up. The patient reports her pain is solely around her left cheek. She denies changes in bite/malocclusion. She endorses mild pain if she opens her mouth very wide, though this is in the area directly below her left cheek. 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, broken jaw repair Reported Medications Active Reported Atorvastatin (Atorvastatin Calcium) 10 Mg Tab 10 Mg PO HS Zantac (Ranitidine HCl) 150 Mg Tab 150 Mg PO DAILY Aspirin 81 Mg Chew 81 Mg CHEW DAILY Ditropan (Oxybutynin Chloride) 5 Mg Tab 5 Mg PO Q12HR Triamterene-Hydrochlorothiazide 37.5-25 Mg Cap 1 Cap PO DAILY Carvedilol 12.5 Mg Tab 12.5 Mg PO BID Allergies: Coded Allergies: Sulfa (Sulfonamide Antibiotics) (Verified Allergy, Severe, Anaphylaxis, 10/07) Review of Systems Otherwise review of systems noncontributory to presenting complaint Past Family Social History Allergies: Coded Allergies: Sulfa (Sulfonamide Antibiotics) (Verified Allergy, Severe, Anaphylaxis, 10/07) Family History Family history otherwise noncontributory to presenting complaint Social History Patient denies tobacco use Physical Exam Vital Signs Vital Signs Date Time Temp Pulse Resp B/P (MAP) Pulse Ox O2 Delivery O2 Flow Rate FiO2 11/04/17 11:50 97.8 69 20 167/73 (104) 95 11/04/17 07:50 98.5 61 20 143/65 (91) 95 11/04/17 00:00 97.2 75 16 142/67 (92) 96 11/03/17 20:00 96.7 51 20 155/81 (105) 98 11/03/17 18:00 97.3 76 18 140/63 (88) 97 11/03/17 16:00 98.5 52 20 158/70 (99) 97 Physical Exam Alert and oriented 3 normal speech PERRLA moist mucous membranes nonlabored respirations skin without rash V1 to V3 reported normal and symmetric per patient Cranial nerves intact by exam Extraocular muscles intact No restrictions in upward gaze No septal hematoma Face entirely nontender, except overlying left ZMC fracture Teeth nontender Although difficult to assess due to edema, patient does not seem to have any significant enough enopthalmos or vertical orbital dystopia The malar eminence and zygomatic arches look relatively symmetrical, though again this is difficult to assess with her moderate edema Patient is able to open her mouth to at least several centimeters Laboratory Date/Time Source Procedure Growth Status 11/01/17 22:17 Urine Random Urine Urine Culture - Final Escherichia Coli Esbl Positive Complete Result Diagram: 11/02/17 0600 11/02/17 [address] images personally reviewed by me. They show a minimally displaced left zygomaticomaxillary complex fracture. The orbital floor component seems small and without periorbital fat herniation. There is also a dental cyst. (The primary has been instructed to consult OMFS for workup of dental cyst.) Assessment and Plan Problem List: (1) Zygoma fracture ICD Codes: S02.402A - Zygomatic fracture, unspecified side, initial encounter for closed fracture Assessment and Plan This is an 87-year-old female who presents 3 days after a ground-level fall resulting in a left ZMC fracture. Incidentally the patient has findings of a dental cyst on CT. The primary team was asked to consult OMFS for workup of the dental cyst as that is outside of my scope of practice. Regarding her facial fracture, radiographically it appears minimally displaced. Clinically she does not seem to have significant cosmetic sequelae, though this was discussed at length with her that the edema may sometimes mask this and it may become evident as it resolves. A discussion was had with the patient regarding the risks benefits and alternative treatments. It is my recommendation that the patient treat this fracture nonoperatively with a soft diet until her tenderness and pain resolves. The patient is in agreement and has elected to assume the risks of nonoperative treatment I did stress with the patient though that as the edema resolves, enophthalmos and/or vertical orbital dystopia may become evident For this reason I would like the patient to follow-up with me in clinic within 7 -10 days for reevaluation. All questions answered The patient endorses understanding of the above and agrees with plan Adalid Taylor MD Nov 04, 2017 15:02
[2017-11-04 15:50] VITALS: BP 160/70; PULSE 70; RESP 20; TEMP 96.1; O2SAT 97
[2017-11-04 20:00] VITALS: BP 156/67; PULSE 53; RESP 20; TEMP 96.5; O2SAT 97
[2017-11-04] MEDS: ATORVASTATIN 10 MG TAB PO SCH (22:30)
[2017-11-04] MEDS: LACTOBACILLUS ACIDOPHILUS TAB PO SCH (22:30)
[2017-11-04 22:47] LABS: BILIRUBIN, URINE NEG (NEG); BLOOD, URINE NEG (NEG); GLUCOSE,URINE NEG (NEG); KETONE, URINE NEG (NEG); NITRITE,URINE NEG (NEG); URINE LEUKOCYTE ESTERASE SMALL (NEG)
[2017-11-04 23:00] LABS: RBC, URINE 0-3 /hpf (0-3); SQUAMOUS EPITHELIAL CELL URINE 0-5 /hpf (0-5); WHITE BLOOD CELL CLUMPS FEW
[2017-11-04 23:51] LABS: URINE COLOR YELLOW (YELLW/STRAW)
[2017-11-05] VITALS: BP 116/51; PULSE 66; RESP 20; TEMP 97.8; O2SAT 96
[2017-11-05 08:00] VITALS: BP 153/85; PULSE 75; RESP 18; TEMP 97.6; O2SAT 95
--- NOTE | 2017-11-05 08:36 | HHI.FF ---
Face to Face Verification Diagnosis: (1) Facial fracture due to fall (2) Fracture of maxillary sinus (3) Concussion Physical Therapy Order: Evaluate and Treat, Improve ambulation, Strength and gait training Home Health Nursing Order: Medical education Nursing assessment with vital signs I have seen patient Maude Bowden on 11/05/17. My clinical findings support the need for the requested home health care services because: Deconditioned w/ increased weakness I certify that my clinical findings support that this patient is homebound because: Unsteady gait/balance Gómez John Nov 05, 2017 08:36
[2017-11-05] MEDS: OXYBUTYNIN CHLORIDE 5 MG TAB PO SCH ×2 (09:14→20:16)
[2017-11-05] MEDS: DOCUSATE SODIUM 50 MG/SENNA 8.6 MG TAB PO SCH ×2 (09:14→20:16)
[2017-11-05] MEDS: LACTOBACILLUS ACIDOPHILUS TAB PO SCH ×2 (09:14→20:16)
[2017-11-05] MEDS: TRIAMTERENE/HCTZ 37.5 MG/25 MG CAP PO SCH (09:14)
[2017-11-05] MEDS: CARVEDILOL 12.5 MG TAB PO SCH ×2 (09:14→20:17)
[2017-11-05] MEDS: SODIUM CHLORIDE 0.9% FLUSH 10 ML FLUSH IV FLUSH SCH ×2 (09:14→20:18)
[2017-11-05] MEDS: FAMOTIDINE 20 MG TAB PO SCH (09:14)
[2017-11-05 12:30] VITALS: BP 143/70; PULSE 62; RESP 18; TEMP 97.5; O2SAT 97
[2017-11-05] MEDS: ERTAPENEM 1,000 MG/NS 100 ML IV SCH ×2 (12:35)
--- NOTE | 2017-11-05 13:02 | HHI.PR ---
Subjective Remarks Patient seen and evaluated today in follow-up for urinary tract infection with ESBL Escherichia coli and for left facial fractures status post. No new complaints. Patient alert and orientated. Discharge plans and plans for treatment of urinary tract infection are discussed with patient and spouse at bedside and they're in agreement. Ophthalmology consult has been canceled by the manager [employer] Objective Vitals Vital Signs Date Time Temp Pulse Resp B/P (MAP) Pulse Ox O2 Delivery O2 Flow Rate FiO2 11/05/17 12:30 97.5 62 18 143/70 (94) 97 11/05/17 08:00 97.6 75 18 153/85 (107) 95 11/05/17 00:00 97.8 66 20 116/51 (72) 96 11/04/17 20:00 96.5 53 20 156/67 (96) 97 11/04/17 15:50 96.1 70 20 160/70 (100) 97 I/O 11/04/17 11/04/17 11/04/17 11/05/17 11/05/17 11/05/17 07:00 15:00 23:00 07:00 15:00 23:00 Intake Total 340 ml 100 ml 840 ml 60 ml Balance 340 ml 100 ml 840 ml 60 ml Intake Oral 240 ml 840 ml 60 ml IV Total 100 ml 100 ml # Voids 3 10 1 # Bowel Movements 0 4 0 Result Diagram: 11/02/17 0600 11/02/17 0600 Objective Remarks GENERAL: This is a well-nourished, well-developed patient, left facial ecchymosis with some swelling, improved CARDIOVASCULAR: Regular rate and rhythm without murmurs, gallops, or rubs. RESPIRATORY: Clear to auscultation. Breath sounds equal bilaterally. No wheezes , rales, or rhonchi. GASTROINTESTINAL: Abdomen soft, non-tender, nondistended. Normal active bowel sounds MUSCULOSKELETAL: Extremities without clubbing, cyanosis, or edema. NEURO: Alert & Oriented x4 to person, place, time, situation. Moves all ext x4 A/P Problem List: (1) Facial fracture due to fall ICD Code: S02.92XA - Unspecified fracture of facial bones, initial encounter for closed fracture; W19.XXXA - Unspecified fall, initial encounter Plan: Continue supportive care with pain control Oral surgery recommended supportive care with outpatient follow-up Ophthalmology consult has been canceled by the [employer] (2) Abnormal urinalysis ICD Code: R82.90 - Unspecified abnormal findings in urine Plan: Patient with ESBL Escherichia coli, ertapenem for ID Repeat UA pending for further management (3) Hypertension ICD Code: I10 - Essential (primary) hypertension Plan: Controlled on home medications Discharge Planning hopefully discharge home one to 2 days pending plans for antibiotic treatment of her resistant UTI Meenu Stiles MD Nov 05, 2017 13:02
[2017-11-05 16:00] VITALS: BP 148/87; PULSE 64; RESP 18; TEMP 97.7; O2SAT 99
[2017-11-05 20:00] VITALS: BP 143/73; PULSE 75; RESP 20; TEMP 97.3; O2SAT 98
[2017-11-05] MEDS: ATORVASTATIN 10 MG TAB PO SCH (20:16)
[2017-11-06] VITALS: BP 150/67; PULSE 63; RESP 20; TEMP 98; O2SAT 96
[2017-11-06 08:00] VITALS: BP 160/74; PULSE 70; RESP 18; TEMP 97.2; O2SAT 95
--- NOTE | 2017-11-06 08:41 | HHI.IDPN ---
Subjective Subjective Remarks No more dysuria though still has frequency and urgency Overall improved. 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 Vital Signs Date Time Temp Pulse Resp B/P (MAP) Pulse Ox O2 Delivery O2 Flow Rate FiO2 11/06/17 00:00 98.0 63 20 150/67 (94) 96 11/05/17 20:00 97.3 75 20 143/73 (96) 98 11/05/17 16:00 97.7 64 18 148/87 (107) 99 11/05/17 12:30 97.5 62 18 143/70 (94) 97 . Microbiology Date/Time Source Procedure Growth Status 11/04/17 22:27 Urine Clean Catch Urine Culture Pending Received Physical Exam GENERAL: This is a elderly patient, in no apparent distress. Alert, awake and oriented. Sitting up in chair SKIN: Ecchymosis left side of face HEAD: Normocephalic. Left eye ecchymosis and mild swelling, status post fall. No hemorrhage noted. Denies any blurry vision. EYES: Pupils equal round and reactive. Extraocular motions intact. No scleral icterus. No drainage. ENT: Nose without bleeding, purulent drainage or septal hematoma. Throat without erythema. Uvula midline. Airway patent. NECK: Trachea midline. No JVD. Supple. CARDIOVASCULAR: Regular rate and rhythm without murmurs, gallops, or rubs. RESPIRATORY: Clear to auscultation. Breath sounds equal bilaterally. No wheezes , rales, or rhonchi. GASTROINTESTINAL: Abdomen soft, non-tender, nondistended. No guarding. MUSCULOSKELETAL: Extremities without clubbing, cyanosis, or edema. No joint tenderness, effusion, or edema noted. NEUROLOGICAL: Awake and alert. Cranial nerves II through XII intact. Motor and sensory grossly within normal limits. Five out of 5 muscle strength in all muscle groups. Normal speech. Assessment & Plan Diagnosis: (1) UTI (urinary tract infection) ICD Codes: N39.0 - Urinary tract infection, site not specified Status: Acute Plan: On IV ertapenem Repeat UA on evening markedly improved- culture pending. Recommend - 3rd dose of IV Ertapenem today If repeat urine culture negative- can be discharged on no antibiotics If culture still positive- Augmentin 875 mg po bid x 7 days (2) Infection due to ESBL-producing Escherichia coli ICD Codes: A49.8 - Other bacterial infections of unspecified site; Z16.12 - Extended spectrum beta lactamase (ESBL) resistance (3) Orbital floor fracture ICD Codes: S02.30XA - Fracture of orbital floor, unspecified side, initial encounter for closed fracture Status: Acute (4) Fracture of maxillary sinus ICD Codes: S02.401A - Maxillary fracture, unspecified side, initial encounter for closed fracture Status: Acute Marly Church MD Nov 06, 2017 08:41
[2017-11-06] MEDS: DOCUSATE SODIUM 50 MG/SENNA 8.6 MG TAB PO SCH (09:00)
[2017-11-06] MEDS: FAMOTIDINE 20 MG TAB PO SCH (09:32)
[2017-11-06] MEDS: OXYBUTYNIN CHLORIDE 5 MG TAB PO SCH (09:32)
[2017-11-06] MEDS: LACTOBACILLUS ACIDOPHILUS TAB PO SCH (09:32)
[2017-11-06] MEDS: CARVEDILOL 12.5 MG TAB PO SCH (09:32)
[2017-11-06] MEDS: TRIAMTERENE/HCTZ 37.5 MG/25 MG CAP PO SCH (09:32)
[2017-11-06] MEDS: SODIUM CHLORIDE 0.9% FLUSH 10 ML FLUSH IV FLUSH SCH (09:33)
--- NOTE | 2017-11-06 11:13 | HHI.PR ---
Subjective Remarks Patient seen and very today in follow-up for facial fracture and urinary tract infection Doing well today Objective Vitals Vital Signs Date Time Temp Pulse Resp B/P (MAP) Pulse Ox O2 Delivery O2 Flow Rate FiO2 11/06/17 08:00 97.2 70 18 160/74 (102) 95 11/06/17 00:00 98.0 63 20 150/67 (94) 96 11/05/17 20:00 97.3 75 20 143/73 (96) 98 11/05/17 16:00 97.7 64 18 148/87 (107) 99 11/05/17 12:30 97.5 62 18 143/70 (94) 97 I/O 11/05/17 11/05/17 11/05/17 11/06/17 11/06/17 11/06/17 07:00 15:00 23:00 07:00 15:00 23:00 Intake Total 60 ml 480 ml 120 ml Balance 60 ml 480 ml 120 ml Intake Oral 60 ml 480 ml 120 ml # Voids 1 3 4 # Bowel Movements 0 0 0 Result Diagram: 11/02/17 0600 11/02/17 0600 Imaging Last Impressions Wrist X-Ray 11/02/17 0000 Signed Impressions: Service Date/Time: Thursday, November 02, 2017 10:01 - CONCLUSION: No evidence of fracture. 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 Jaycob Mckeon MD Maxillofacial CT 11/01/172210 Signed Impressions: Service Date/Time: Wednesday, November 01, 2017 22:25 - CONCLUSION: 1. Left orbital floor flexure and left lateral orbital wall fracture. 2. Anterior and posterior lateral left maxillary sinus wall fractures. Moderate-sized air- fluid level/hemorrhagic products in the left maxillary sinus. 3. 1.6 cm osseous cyst in the left maxillary bone about the root of a left-sided maxillary molar. This finding deforms the inferior wall of the left maxillary sinus. Jaycob Mckeon MD Head CT 11/01/172210 Signed Impressions: Service Date/Time: Wednesday, November 01, 2017 22:25 - CONCLUSION: Left-sided facial bone fractures. No acute intracranial findings. Jaycob Mckeon MD Objective Remarks GENERAL: This is a well-nourished, well-developed patient, left facial ecchymosis with some swelling, improved CARDIOVASCULAR: Regular rate and rhythm without murmurs, gallops, or rubs. RESPIRATORY: Clear to auscultation. Breath sounds equal bilaterally. No wheezes , rales, or rhonchi. GASTROINTESTINAL: Abdomen soft, non-tender, nondistended. Normal active bowel sounds MUSCULOSKELETAL: Extremities without clubbing, cyanosis, or edema. NEURO: Alert & Oriented x4 to person, place, time, situation. Moves all ext x4 A/P Problem List: (1) Facial fracture due to fall ICD Code: S02.92XA - Unspecified fracture of facial bones, initial encounter for closed fracture; W19.XXXA - Unspecified fall, initial encounter Plan: Continue supportive care with pain control Oral surgery recommended supportive care with outpatient follow-up Ophthalmology consult has been canceled by the [employer] (2) Abnormal urinalysis ICD Code: R82.90 - Unspecified abnormal findings in urine Plan: Patient with ESBL Escherichia coli, ertapenem x3d, uncomplicated Repeat UA pending for further management (called micro urine <10,000 on preliminary reading) (3) Hypertension ICD Code: I10 - Essential (primary) hypertension Plan: Controlled on home medications Discharge Planning [facility] Meenu Stiles MD Nov 06, 2017 11:13
--- NOTE | 2017-11-06 11:15 | HHI.DS ---
Discharge Summary Admission Date Nov 05, 2017 at 10:12 Discharge Date: Nov 06, 2017 Admitting Diagnosis Concussion, Facial fractures, UTI (1) Facial fracture due to fall ICD Code: S02.92XA - Unspecified fracture of facial bones, initial encounter for closed fracture; W19.XXXA - Unspecified fall, initial encounter (2) Abnormal urinalysis ICD Code: R82.90 - Unspecified abnormal findings in urine (3) Hypertension ICD Code: I10 - Essential (primary) hypertension Procedures None Brief History - From Admission Written by Amy Esposito, acting as scribe for [[facility]] on 11/02/17 at 0956. This is an 87-year-old female patient with a known medical history of hyperlipidemia, hypertension and overactive bladder who presented to the ED status post fall. Per , patient had apparently tripped and fell in the parking lot last evening around 2100 hitting the left side of his her face, therefore was brought in to the ED. A CT head was performed showing no acute intracranial abnormality. Patient does not recall the fall or incidents after the fall up until this morning. Patient and her family did go to a wedding the day of the fall and patient's memory of the last day is foggy. Denies any recent illness including fever, chills, shortness of breath, cough, chest pain, nausea, vomiting or diarrhea. Denies any headaches or blurry vision. Patient does state that she had a urinary tract infection one year ago with similar symptoms of confusion and lethargy. At that time she was treated with antibiotics and symptoms improved. Patient is completely independent at baseline, lives at home alone with and able to perform all ADLs independently. CBC/BMP: 11/02/17 0600 11/02/17 0600 Significant Findings Laboratory Tests Test 11/04/17 22:27 Urine Leukocyte Esterase SMALL (NEG) Urine WBC 9-14 /hpf (0-5) Urine WBC Clumps FEW (NONE) Imaging Last Impressions Wrist X-Ray 11/02/17 0000 Signed Impressions: Service Date/Time: Thursday, November 02, 2017 10:01 - CONCLUSION: No evidence of fracture. 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 Jaycob Mckeon MD Maxillofacial CT 11/01/172210 Signed Impressions: Service Date/Time: Wednesday, November 01, 2017 22:25 - CONCLUSION: 1. Left orbital floor flexure and left lateral orbital wall fracture. 2. Anterior and posterior lateral left maxillary sinus wall fractures. Moderate-sized air- fluid level/hemorrhagic products in the left maxillary sinus. 3. 1.6 cm osseous cyst in the left maxillary bone about the root of a left-sided maxillary molar. This finding deforms the inferior wall of the left maxillary sinus. Jaycob Mckeon MD Head CT 11/01/172210 Signed Impressions: Service Date/Time: Wednesday, November 01, 2017 22:25 - CONCLUSION: Left-sided facial bone fractures. No acute intracranial findings. Jaycob Mckeon MD PE at Discharge GENERAL: This is a well-nourished, well-developed patient, left facial ecchymosis with some swelling, improved CARDIOVASCULAR: Regular rate and rhythm without murmurs, gallops, or rubs. RESPIRATORY: Clear to auscultation. Breath sounds equal bilaterally. No wheezes , rales, or rhonchi. GASTROINTESTINAL: Abdomen soft, non-tender, nondistended. Normal active bowel sounds MUSCULOSKELETAL: Extremities without clubbing, cyanosis, or edema. NEURO: Alert & Oriented x4 to person, place, time, situation. Moves all ext x4 Pt update on day of discharge , Patient doing well. Discharge plans discussed with patient and family Hospital Course This patient is an 87-year-old female who had a fall. She had a urinary tract infection which appeared to be ESBL and this was treated with IV ertapenem with ID consultation. She did have some orbital fractures after her fall which was evaluated by the oral maxillofacial face team. Recommendations were for outpatient follow-up Pt Condition on Discharge: Good Discharge Disposition: Discharge Home Discharge Time: <= 30 minutes Discharge Instructions DIET: Follow Instructions for: As Tolerated, No Restrictions Activities you can perform: Regular-No Restrictions Meenu Stiles MD Nov 06, 2017 11:15
[2017-11-06] MEDS: ERTAPENEM 1,000 MG/NS 100 ML IV SCH ×2 (11:41)
== END 2017-11-06 15:25 | disposition home or self-care (01) | DRG 158 ==
LOC: PHED 21:47 → PHEDA 11-02 00:22 → PHICU 11-02 02:00 → PH3A 11-03 17:17 → OBSVTOIN 11-05 10:12
PROVIDERS: ADMIT Hospitalist; ATTEND Hospitalist
DX: S02.40FA Zygomatic fracture, left side, initial encounter for closed fracture (principal); S02.32XA Fracture of orbital floor, left side, initial encounter for closed fracture; N39.0 Urinary tract infection, site not specified; S02.19XA Other fracture of base of skull, initial encounter for closed fracture; S02.82XA Fracture of other specified skull and facial bones, left side, initial encounter for closed fracture; I10 Essential (primary) hypertension; S06.0X0A Concussion without loss of consciousness, initial encounter; W01.0XXA Fall on same level from slipping, tripping and stumbling without subsequent striking against object, initial encounter; Y92.481 Parking lot as the place of occurrence of the external cause; M85.68 Other cyst of bone, other site; N32.81 Overactive bladder; E78.5 Hyperlipidemia, unspecified; Z96.642 Presence of left artificial hip joint; Z79.82 Long term (current) use of aspirin; Z96.653 Presence of artificial knee joint, bilateral; M19.90 Unspecified osteoarthritis, unspecified site; Z82.49 Family history of ischemic heart disease and other diseases of the circulatory system; Z81.8 Family history of other mental and behavioral disorders; B96.20 Unspecified Escherichia coli [E. coli] as the cause of diseases classified elsewhere; Z16.12 Extended spectrum beta lactamase (ESBL) resistance
CPT/HCPCS: 70450; 70486; 73110; 80053; 81001; 84484; 85025; 85610; 85730; 87077; 87086; 87186; 96361; 96365; 96366; 96375; G0378; G8987-GP; G8988-GP; J0360; J0696; J1335; J2270; J7030